=== PATIENT | male | born 2000 | race Caucasian/White ===

== ENCOUNTER → 2022-10-20 | Outpatient (CLI) | payer BC ==
--- NOTE | 2022-10-20 08:49 | Diagnostic Imaging Report ---
PROCEDURE: MR imaging cervical spine without contrast. TECHNIQUE: Multiplanar, multisequence MR imaging of the cervical spine was performed without contrast. INDICATION: Chronic neck and bilateral shoulder pain, greater left. COMPARISON: No priors. FINDINGS: The cervical spinal cord itself has normal volume, normal morphology, and normal signal intensity. The neck is held with slight leftward convexity scoliotic curvature which may be positional and reflective of head tilting. There is no anterior or posterior listhesis. There is incomplete segmentation across the C4-C5 level on a developmental or congenital basis. No acute or subacute bony pathology. No marrow edema. No paravertebral mass, hemorrhage, or fluid collection. The craniocervical relationship as well as the C1-C2 and C2-C3 levels and discs are normal. No stenosis. C3-C4: There is disc desiccation and mild diffuse circumferential disc bulge with no significant canal stenosis. There is mild right foraminal narrowing. C4-C5: There is no significant canal or foraminal stenosis. C5-C6: Disc desiccation and bulge with endplate osteophytes are present. Osteophyte/disc material is asymmetric (greater left) with moderate left foraminal narrowing. The right neural foramen is mildly stenosed. The canal is patent. C6-C7: Disc desiccation, bulge, and endplate osteophytes are asymmetric, greater left. The right foramen is widely patent. The left neural foramen is moderately stenosed. The spinal canal shows no significant narrowing. C7-T1: This level and disc are normal. There is no stenosis. IMPRESSION: Left greater than right lower cervical foraminal stenoses owing to eccentric disc bulges. Normal spinal cord with no significant canal stenosis. There is incomplete segmentation at the C4-C5 level with no acute or subacute bony pathology. Dictated by: Dictated on workstation # [id number]
== END ==
LOC: RAD 07:36
DX: M48.02 Spinal stenosis, cervical region (principal); M50.30 Other cervical disc degeneration, unspecified cervical region
CPT/HCPCS: 72141

== ENCOUNTER 2023-02-13 19:50 | Emergency (ER) | payer BC ==
[~2023-02-13] VITALS: Ht 177.8 cm; Wt 72.6 kg
[2023-02-13] MEDS ORDERED: LIDOCAINE 1% INJ 20 ML VIAL INJ ONE (20:00)
[2023-02-13] MEDS ORDERED: Tetanus/Diphtheria/Pertussis (Acell) ADULT Vaccine 0.5 ML IM ONE (20:00)
[2023-02-13] MEDS ORDERED: LIDOCAINE 1% INJ 10 ML VIAL ONE (20:03)
--- NOTE | 2023-02-13 20:38 | ED Integumentary General ---
General Chief Complaint: Skin/Wound Problems Stated Complaint: LACERATION LEFT HAND Nursing Triage Note: Patient c/o laceration to Lt. thumb that happened before arrival to ER. Patient is able to move his thumb up and down. Patient is unable to state when his last tetanus shot was. Bleeding controlled upon coming into ER. Source: patient Exam Limitations: no limitations History of Present Illness Date Seen by Provider: Feb 13, 2023 Time Seen by Provider: 19:57 Initial Comments This 22-year-old young man presents to the emergency room with a laceration over the proximal joint on his left thumb. He was trying to cut a zip tie off of some packaging when he slipped and cut himself with a knife. Bleeding is controlled at this time. He is uncertain of his last tetanus immunization. Flexion and extension is fully intact. There appears to be no tendon injury. Patient uses hydrocodone for chronic pain management. He took a dose prior to coming to the emergency room. Allergies and Home Medications Allergies Coded Allergies: No Known Drug Allergies (Unverified , 02/13/23) Patient Home Medication List Home Medication List Reviewed: Yes Review of Systems Review of Systems Constitutional: no symptoms reported EENTM: no symptoms reported Respiratory: no symptoms reported Cardiovascular: no symptoms reported Gastrointestinal: no symptoms reported Genitourinary: no symptoms reported Musculoskeletal: no symptoms reported Skin: see HPI Psychiatric/Neurological: No Symptoms Reported Endocrine: No Symptoms Reported Past Jwfmmld-Tocnoy-Hghjjw Hx Patient Social History Tobacco Use?: No Use of E-Cig and/or Vaping dev: No Substance use?: No Alcohol Use?: Yes Alcohol Frequency: Once in a while Immunizations Up To Date Influenza Vaccine Up-to-Date: No; Not Current Past Medical History Surgeries: No (None reported) Musculoskeletal: Yes (Chronic neck pain) Physical Exam Vital Signs Vital Signs - First Documented 02/13/23 19:54 Temp 36.7 Pulse 88 Resp 12 B/P (MAP) 142/99 (113) O2 Delivery Room Air Capillary Refill : Less Than 3 Seconds General Appearance: WD/WN, no apparent distress Extremities: normal range of motion, other (1 cm laceration over the dorsal aspect of proximal joint of left thumb) Neurologic/Psychiatric: no motor/sensory deficits, alert, normal mood/affect, oriented x 3 Skin: normal color, warm/dry, other (As above) Procedures/Interventions Other Wound Location Dorsum of left hand over the first MCP joint. Wound Length (cm): 1 Wound's Depth, Shape: linear, sub Q Wound Explored: clean Irrigated w/ Saline (ccs): 100 Betadine Prep?: Yes Anesthesia: 1% Lidocaine Volume Anesthetic (ccs): 1 Suture: Prolene Suture Size: 4-0 Number of Sutures: 3 Sterile Dressing Applied?: Yes Progress Wound was sprayed with lidocaine. Skin was then cleaned with alcohol. Local anesthetic was then injected with 1% lidocaine. Wound was cleaned with chlorhexidine and saline. It was irrigated with IV catheter and syringe. It was then rinsed with saline. Betadine prep was applied. Wound was then approximated with 4-0 Prolene suture in an interrupted fashion. Prior to suturing, I did ensure that he had full flexion and extension intact indicating no tendon injury. Patient tolerated the procedure well. Skin was cleaned and dressing was applied. Progress/Results/Core Measures Results/Orders My Orders Orders - GHASSAN FORRESTER MD Lidocaine 1% Inj 20 Ml (Xylocaine 1% Inj (02/13/23 20:00) Dipht/Pertuss(Acell)/Tet Adult (Dipht/Pe (02/13/23 20:00) Lidocaine 1% Inj 10 Ml (Xylocaine 1% Inj (02/13/23 20:03) Medications Given in ED Vital Signs/I&O 02/13/23 02/13/23 19:54 20:44 Temp 36.7 Pulse 88 Resp 12 B/P (MAP) 142/99 (113) 138/87 O2 Delivery Room Air Blood Pressure Mean: 113 Progress Progress Note : Progress Note Wound was approximated and tetanus booster was administered. See discharge instructions. Departure Impression Primary Impression: Laceration of left hand Qualified Codes: S61.412A - Laceration without foreign body of left hand, initial encounter Disposition: HOME, SELF-CARE Condition: Improved Departure-Patient Inst. Decision time for Depature: 20:36 Referrals: NO,LOCAL PHYSICIAN (PCP/Family) Primary Care Physician Patient Instructions: Laceration Repair With Stitches (DC) Add. Discharge Instructions: Keep your wound clean and dry except for normal handwashing and showering. Do not submerge until after sutures are removed. Try not to get the wound wet tonight. Try to keep the wound elevated to the level of your heart tonight is much as possible to prevent bleeding. If bleeding occurs, apply a light pressure with a clean gauze and elevate for 20 to 30 minutes. If dressing sticks to your wound because of dried blood or drainage, simply moisten the dressing with tap water and wait a few minutes before attempting to remove. Keep the wound open to air when awake and in clean environments. Cover when active, in dirty environments, or sleeping to avoid disrupting the sutures. You may resume normal activities of daily living such as typing, driving, laundry, etc. Avoid aggressive activities such as athletics, weight lifting, etc. until sutures are removed. Return in 8 to 10 days to have sutures removed. You may request adding glue or Steri-Strips to help strengthen the wound when you return for suture removal. Monitor the wound for signs of infection such as increasing redness, increasing swelling, puslike drainage, or fever. Return to care if you notice these symptoms. You may have a small amount blood or clear yellow drainage over the next 1 to 2 days which is normal. All discharge instructions reviewed with patient and/or family. Voiced understanding. GHASSAN FORRESTER MD Feb 13, 2023 20:38
[2023-02-13 20:44] VITALS: BP 138/87
== END 2023-02-13 20:49 | disposition home or self-care (01) ==
LOC: EDUNIT# 19:50 → ER 19:52
DX: S61.012A Laceration without foreign body of left thumb without damage to nail, initial encounter (principal); Z23 Encounter for immunization; W26.0XXA Contact with knife, initial encounter
CPT/HCPCS: 90715

== ENCOUNTER 2023-02-18 12:24 | Emergency (ER) | payer BC ==
[~2023-02-18] VITALS: Ht 177.8 cm; Wt 74.3 kg
[2023-02-18 12:33] VITALS: BP 118/71
[2023-02-18] MEDS ORDERED: CEPH500T PO (12:53)
[2023-02-18] MEDS ORDERED: DOXY100T2 PO (12:53)
--- NOTE | 2023-02-18 12:53 | ED Integumentary General ---
General Chief Complaint: Skin/Wound Problems Stated Complaint: RECHECK WOUNDS Nursing Triage Note: Patient states he is here today to have his wound to Lt. thumb checked d/t it becoming red. Patient states he had stitches placed to Lt. thumb this last Wednesday here at this ER. Patient states he has increased pain and swelling to Lt. thumb. Patient states the area has had some drainage, but states it has not been much. Patient denies any fevers. Source: patient Exam Limitations: no limitations History of Present Illness Date Seen by Provider: Feb 18, 2023 Time Seen by Provider: 12:42 Initial Comments 22-year-old male presents to the ER with concern of infection to his wound. Patient was seen here 5 days ago for a laceration to his left thumb from a pocket knife. Laceration was repaired with sutures. He states that yesterday he noted redness, swelling and pain to location. Denies discolored odorous drainage. Denies fevers. Allergies and Home Medications Allergies Coded Allergies: No Known Drug Allergies (Unverified , 02/13/23) Patient Home Medication List Home Medication List Reviewed: Yes Cephalexin (Cephalexin) 500 Mg Tablet, 500 MG PO QID Prescribed by: Heydi Rod on 02/18/23 1253 Doxycycline Hyclate (Doxycycline Hyclate) 100 Mg Tablet, 100 MG PO BID Prescribed by: Heydi Rod on 02/18/23 1253 Review of Systems Review of Systems Constitutional: see HPI Past Rotgots-Rxkwrg-Rxncoi Hx Patient Social History Tobacco Use?: No Use of E-Cig and/or Vaping dev: No Substance use?: No Alcohol Use?: No Immunizations Up To Date Influenza Vaccine Up-to-Date: No; Not Current Past Medical History Surgeries: No (None reported) Musculoskeletal: Yes (Chronic neck pain) Physical Exam Vital Signs Vital Signs - First Documented 02/18/23 12:33 Temp 36.8 Pulse 83 Resp 12 B/P (MAP) 118/71 (87) O2 Delivery Room Air Capillary Refill : General Appearance: WD/WN, no apparent distress Neck: supple, normal inspection Cardiovascular: regular rate, rhythm Respiratory: lungs clear, normal breath sounds, no respiratory distress, no accessory muscle use Extremities: normal range of motion Neurologic/Psychiatric: alert, normal mood/affect Skin: warm/dry Skin Problem Location: upper extremities (Left thumb) Skin Problem Character: erythema, swelling Procedures/Interventions Suture Size: 4-0 Progress/Results/Core Measures Results/Orders Vital Signs/I&O 02/18/23 12:33 Temp 36.8 Pulse 83 Resp 12 B/P (MAP) 118/71 (87) O2 Delivery Room Air Blood Pressure Mean: 87 Progress Progress Note : Progress Note Patient seen and evaluated, resting comfortably in recliner, no acute distress. Laceration appears to be infected, erythema, swelling noted. No obvious drainage noted. Will treat with Keflex and doxycycline to cover both strep and staph. Discharge instructions and return precautions provided. Departure Impression Primary Impression: Cellulitis Disposition: HOME, SELF-CARE Condition: Stable Departure-Patient Inst. Decision time for Depature: 12:50 Referrals: NO,LOCAL PHYSICIAN (PCP/Family) Primary Care Physician Patient Instructions: Cellulitis (Skin Infection), Adult (DC) Add. Discharge Instructions: Complete full course of both antibiotics as prescribed. Return in 5 days to have the sutures removed. You should keep your hand clean and dry. May wash your hands, let water and soap run over it, do not scrub, do not soak your hand. Return for any new, concerning, or worsening symptoms. All discharge instructions reviewed with patient and/or family. Voiced understanding. Scripts Doxycycline Hyclate (Doxycycline Hyclate) 100 Mg Tablet 100 MG PO BID for 7 Days, #14 TAB 0 Refills Prov: HEYDI BUTLER APRN 02/18/23 Cephalexin (Cephalexin) 500 Mg Tablet 500 MG PO QID for 7 Days, #28 TAB 0 Refills Prov: HEYDI BUTLER APRN 02/18/23 HEYDI BUTLER APRN Feb 18, 2023 12:53
== END 2023-02-18 12:59 | disposition home or self-care (01) ==
LOC: EDUNIT# 12:24 → ER 12:26
DX: L03.012 Cellulitis of left finger (principal)
CPT/HCPCS: 99281

== ENCOUNTER 2023-02-23 12:23 | Emergency (ER) | payer BC ==
[~2023-02-23] VITALS: Ht 175 cm; Wt 68.0 kg
[~2023-02-23 12:23] MED LIST: CEPH500T PO; DOXY100T2 PO
[2023-02-23 12:30] VITALS: BP 125/75
== END 2023-02-23 12:35 | disposition home or self-care (01) ==
LOC: EDUNIT# 12:23 → ER 12:25
DX: Z48.02 Encounter for removal of sutures (principal)